=== PATIENT | female | born 1960 | race Caucasian/White ===

== ENCOUNTER 2016-11-10 08:29 | Day surgery (SDC) | payer OTHER ==
[~2016-11-10] VITALS: Ht 157.5 cm; Wt 77.5 kg
[2016-11-10 09:25] VITALS: Ht 157.5 cm; Wt 77.5 kg
[2016-11-10] MEDS ORDERED: LEVO50TA71 PO (09:33)
[2016-11-10] MEDS ORDERED: LOSA50TA6 PO (09:33)
[2016-11-10] MEDS ORDERED: ZOC10 PO (09:33)
[2016-11-10] MEDS ORDERED: PROPOFOL 80 ML ONE (09:50)
[2016-11-10] MEDS ORDERED: MIDAZOLAM 1 MG/ML 2 ML INJ ONE (09:51)
[2016-11-10] MEDS ORDERED: FENTAnyl 50 MCG/ML VIAL ONE (09:51)
--- NOTE | 2016-11-10 10:03 | OPPN ---
Date/Time of Note Date/Time of Note DATE: 11/10/16 TIME: 10:01 Operative Report Preoperative Diagnosis Screening Abdominal pain Postoperative Diagnosis Small hiatal hernia and gastroesophageal reflux disease Gastritis with erosions Internal hemorrhoids No colon neoplasm is identified Operation/Procedure Performed Esophagogastroduodenoscopy and biopsy Colonoscopy Surgeon see signature line human resource assistant None Anesthesia: MAC Estimated blood loss: none Transfusion Required none Specimen Gastric mucosal biopsy Grafts/Implants none Complications none SHAYNA MARRERO MD Nov 10, 2016 10:03
[2016-11-10 10:34] VITALS: BP 137/68; RESP 14
--- NOTE | 2016-11-10 10:44 | GILP ---
DATE OF PROCEDURE: 11/10/2016 PROCEDURE PERFORMED: 1. Esophagogastroduodenoscopy and biopsy. 2. Colonoscopy. SURGEON: Ulises Dumont MD. PREOPERATIVE DIAGNOSES: 1. Abdominal pain. 2. Screening colonoscopy. POSTOPERATIVE DIAGNOSES: 1. Small hiatal hernia. 2. Gastroesophageal reflux disease. 3. Gastritis with erosions. 4. Gastric mucosal biopsies were taken for Helicobacter pylori test. 5. Colonoscopy all the way to the cecum. 6. Internal hemorrhoids. 7. No colon neoplasm was identified. INDICATION: Ms. Conchis Kent is a 55-year-old female patient who is scheduled for screening colonoscopy. She also had upper abdominal pain, not responding to therapy. The procedures and possible complications were well explained to the patient. She understood and consented to the procedure. DESCRIPTION OF PROCEDURE: Under the influence of anesthesia, the gastroscope was carefully introduced into the esophagus, and under direct vision, it was advanced to the stomach, into the pylorus, into the duodenal bulb, and descending duodenum. FINDINGS: Esophagus: The patient had a small hiatal hernia and gastroesophageal reflux disease. Stomach: She had gastritis with erosions. Gastric mucosal biopsies were taken for Helicobacter pylori test. Duodenum was normal. The colonoscope was carefully introduced in the rectum, and under direct vision, it was advanced all the way to the cecum. FINDINGS: The patient had internal hemorrhoids. No colon neoplasm was identified. The patient tolerated the procedures very well. There was no complication from the procedures. At the end of procedure, she was awake with stable vital signs and she was discharged home in the care of her family. IMPRESSION: Please see postop diagnoses. PLAN: 1. Omeprazole 40 mg p.o. in the morning. 2. Zantac 300 mg p.o. at bedtime. 3. Await H pylori test report. 4. Next screening colonoscopy in 10 years. Dictated By: MD DONALD Lawrence/elena/yvette /Document#: [id number]
== END 2016-11-10 15:30 | disposition home or self-care (01) ==
LOC: GIL 08:29
PROVIDERS: ATTEND Internal Medicine Gastroenterology
DX: R10.9 Unspecified abdominal pain (principal); K44.9 Diaphragmatic hernia without obstruction or gangrene; K21.9 Gastro-esophageal reflux disease without esophagitis; K29.70 Gastritis, unspecified, without bleeding; Z12.11 Encounter for screening for malignant neoplasm of colon; K64.8 Other hemorrhoids
CPT/HCPCS: 43239; 45378; 87081; Z7610; J2250; J3010